=== PATIENT | male | born 1970 | race Caucasian/White ===

== ENCOUNTER 2018-10-03 20:46 | Inpatient (IN) | payer BC, OTHER ==
[~2018-10-03] VITALS: Ht 199.4 cm; Wt 105.3 kg
[2018-10-03] MEDS ORDERED: DIVA500T4 PO (21:06)
[2018-10-03] MEDS ORDERED: PROPOFOL 10 MG/ML, 20ML ONE (21:21)
[2018-10-03] MEDS ORDERED: SODIUM CHLORIDE FLUSH 10ML SYR IVF ONE ×2 (21:30→22:30)
[2018-10-03] MEDS ORDERED: PROPOFOL 10 MG/ML, 20ML IVPush ONE (21:30)
[2018-10-03 21:39] LABS: BASOPHILS # (AUTO) 0.02 x10^3/uL (0-0.1); BASOPHILS % (AUTO) 0 % (0-1); EOSINOPHILS # (AUTO) 0.12 x10^3/uL (0-0.4); EOSINOPHILS % (AUTO) 2 % (1-7); LYMPHOCYTES # (AUTO) 3.29 x10^3/uL (1-3.4); LYMPHOCYTES % (AUTO) 47 % (22-44); MD NO; MEAN CORPUSCULAR HEMOGLOBIN 31.4 pg (27.5-34.5); MEAN CORPUSCULAR VOLUME 92.3 fL (81-97); MEAN PLATELET VOLUME 8.8 fL (7.4-10.4); MONOCYTES # (AUTO) 0.75 x10^3/uL (0.2-0.8); MONOCYTES % (AUTO) 11 % (2-9); NEUTROPHILS # (AUTO) 2.83 x10^3/uL (1.8-6.8); NEUTROPHILS % (AUTO) 40 % (42-75); PLATELET COUNT 199 x10^3/uL (130-400); RED BLOOD COUNT 4.86 x10^6/uL (4.38-5.82); RED CELL DISTRIBUTION WIDTH 14.3 % (9.4-14.8)
[2018-10-03 21:48] LABS: ALBUMIN 3.2 g/dL (3.4-5.0); ANION GAP 6 mmol/L (5-15); CALCIUM 8.7 mg/dL (8.5-10.1); CHLORIDE 110 mmol/L (98-107)
[2018-10-03 22:02] LABS: ALANINE AMINOTRANSFERASE 37 U/L (12-78); ALKALINE PHOSPHATASE 92 U/L (45-117); BILIRUBIN,TOTAL 0.3 mg/dL (0.2-1.0); CREATININE 1.04 mg/dL (0.7-1.3); T4 (THYROXINE) 8.4 mcg/dL (4.5-12.1); TOTAL PROTEIN 6.7 g/dL (6.4-8.2)
[2018-10-03] MEDS ORDERED: DILTIAZEM 125 MG in DEXTROSE 5% 100 ML IV SCH (22:06)
[2018-10-03 22:27] LABS: INTERNATIONAL NORMALIZED RATIO 0.94 (0.93-1.1)
[2018-10-03] MEDS ORDERED: PLEASE ENTER ALLERGIES MC SCH (22:30)
[2018-10-03] MEDS ORDERED: DILTIAZEM 5 MG/ML, 5ML IV ONE (22:30)
[2018-10-03] MEDS ORDERED: SODIUM CHLORIDE 0.9% 1,000ML IVBOLUS ONE (22:30)
[2018-10-03] MEDS ORDERED: DILTIAZEM 5 MG/ML, 5ML ONE (22:33)
[2018-10-03] MEDS ORDERED: BISACODYL 10 MG SUPP PR PRN (23:30)
[2018-10-03] MEDS ORDERED: DILTIAZEM 125 MG in SODIUM CHLORIDE 0.9% 100 ML IV PRN (23:30)
[2018-10-03] MEDS ORDERED: morphine SULFATE 10 MG/ML, 1ML IVPush PRN (23:30)
[2018-10-03] MEDS ORDERED: LABETALOL 5MG/ML, 20ML IVPush PRN (23:30)
[2018-10-03] MEDS ORDERED: DOCUSATE 100 MG CAPSULE PO PRN (23:30)
[2018-10-03] MEDS ORDERED: ONDANSETRON ODT 4 MG PO PRN (23:30)
[2018-10-03] MEDS ORDERED: ONDANSETRON 2MG/ML, 2ML IVPush PRN (23:30)
[2018-10-03] MEDS ORDERED: DIVALPROEX 500 MG TAB.ER.24H PO SCH (23:30)
[2018-10-03] MEDS ORDERED: POLYETHYLENE GLYCOL 17 GM PACKET PO PRN (23:30)
[2018-10-03] MEDS ORDERED: ACETAMINOPHEN 325 MG TABLET PO PRN (23:30)
[2018-10-03] MEDS ORDERED: PROMETHAZINE 25 MG/ML, 1ML IM PRN (23:30)
[2018-10-03] MEDS ORDERED: OXYcodone IR 5MG TABLET PO PRN (23:30)
[2018-10-03 23:56] LABS: HEMOGLOBIN A1C 6.2 % (4.2-6.3)
[2018-10-04] MEDS ORDERED: DILTIAZEM 125 MG in SODIUM CHLORIDE 0.9% 100 ML IV PRN
[2018-10-04 00:04] LABS: FREE T4 (FREE THYROXINE) 0.98 ng/dL (0.76-1.46)
[2018-10-04] MEDS: HEPARIN 5,000 UNITS/ML, 1ML SQ SCH ×2 (00:07→08:22)
[2018-10-04] MEDS: SODIUM CHLORIDE 0.9% 1,000 ML IV SCH ×2 (00:08→10:14)
[2018-10-04] MEDS: ASPIRIN 325 MG TABLET EC PO SCH ×2 (00:08→09:01)
[2018-10-04 02:29] VITALS: BP 108/75
[2018-10-04 02:39] VITALS: BP 109/74
[2018-10-04 05:27] LABS: BASOPHILS # (AUTO) 0.01 x10^3/uL (0-0.1); BASOPHILS % (AUTO) 0 % (0-1); EOSINOPHILS # (AUTO) 0.08 x10^3/uL (0-0.4); EOSINOPHILS % (AUTO) 1 % (1-7); LYMPHOCYTES # (AUTO) 2.68 x10^3/uL (1-3.4); LYMPHOCYTES % (AUTO) 42 % (22-44); MD NO; MEAN CORPUSCULAR HEMOGLOBIN 31.5 pg (27.5-34.5); MEAN CORPUSCULAR HGB CONC 33.7 g/dL (33.2-36.2); MEAN CORPUSCULAR VOLUME 93.2 fL (81-97); MEAN PLATELET VOLUME 8.9 fL (7.4-10.4); MONOCYTES # (AUTO) 0.65 x10^3/uL (0.2-0.8); MONOCYTES % (AUTO) 10 % (2-9); NEUTROPHILS # (AUTO) 2.99 x10^3/uL (1.8-6.8); NEUTROPHILS % (AUTO) 47 % (42-75); PLATELET COUNT 179 x10^3/uL (130-400); RED BLOOD COUNT 4.75 x10^6/uL (4.38-5.82); RED CELL DISTRIBUTION WIDTH 14.4 % (9.4-14.8)
[2018-10-04 05:36] LABS: ALBUMIN 2.9 g/dL (3.4-5.0); ANION GAP 7 mmol/L (5-15); CALCIUM 8.3 mg/dL (8.5-10.1); CHLORIDE 111 mmol/L (98-107)
[2018-10-04 05:41] LABS: ALANINE AMINOTRANSFERASE 33 U/L (12-78); ALKALINE PHOSPHATASE 62 U/L (45-117); BILIRUBIN,TOTAL 0.3 mg/dL (0.2-1.0); CHOLESTEROL, TOTAL 149 mg/dL (140-239); CREATININE 0.88 mg/dL (0.7-1.3); HDL CHOL % 25 % (26-37); HDL CHOLESTEROL (DIRECT) 37 mg/dL (40-60); LDL CHOLESTEROL,CALCULATED 95 mg/dL (54-169); LDL/HDL RATIO 2.6 (0.5-3.0); TRIGLYCERIDES 85 mg/dL (50-200); VLDL CHOLESTEROL 17 mg/dL (0-25)
[2018-10-04] MEDS ORDERED: METOPROLOL TARTRATE 25 MG TABLET PO SCH (06:00)
[2018-10-04] MEDS ORDERED: ASPIRIN 325 MG TABLET EC PO SCH (06:00)
[2018-10-04 07:47] VITALS: BP 124/84
[2018-10-04] MEDS ORDERED: DIVALPROEX 500 MG TAB.ER.24H PO SCH ×2 (09:00)
[2018-10-04] MEDS ORDERED: APIXABAN 5 MG TABLET PO SCH (11:30)
[2018-10-04] MEDS ORDERED: OMNIPAQUE 350 MG/ML, 100ML BOTTLE ONE (12:06)
[2018-10-04] MEDS ORDERED: METO25TA35 PO (12:55)
[2018-10-04] MEDS ORDERED: APIX5TAB PO (12:55)
== END 2018-10-04 16:00 | disposition home or self-care (01) | DRG 309 ==
LOC: ED 22:32 → EDIP 23:17 → 5SO 23:30
PROVIDERS: ADMIT Internal Medicine; ATTEND Family Medicine
PROC: 5A2204Z Restoration of Cardiac Rhythm, Single (ICD-10-PCS; principal; 2018-10-03)
DX: I48.91 Unspecified atrial fibrillation (principal); E44.0 Moderate protein-calorie malnutrition; F31.9 Bipolar disorder, unspecified; E55.9 Vitamin D deficiency, unspecified; G40.909 Epilepsy, unspecified, not intractable, without status epilepticus; Z68.26 Body mass index [BMI] 26.0-26.9, adult; Z82.49 Family history of ischemic heart disease and other diseases of the circulatory system
CPT/HCPCS: 36415; 71045; 71275; 80053; 80061; 80307; 82306; 82607; 83036; 83735; 84436; 84439; 84443; 85025; 85610; 85730; 92960; 93005; 93306; 93970; 96365; 96375; 99152; 99291; G0378; J1644; Q9967; J7030

== ENCOUNTER 2019-05-21 15:23 | Outpatient (CLI) | payer OTHER ==
[~2019-05-21 15:23] MED LIST: APIX5TAB PO; DIVA500T4 PO; METO25TA35 PO
== END 2019-05-21 23:59 | disposition home or self-care (01) ==
LOC: STAR 15:23
PROVIDERS: ATTEND Podiatrist Foot & Ankle Surgery
DX: Z02.9 Encounter for administrative examinations, unspecified (principal)

== ENCOUNTER 2019-05-28 13:18 | Day surgery (SDC) | payer OTHER ==
[~2019-05-28] VITALS: Ht 198.1 cm; Wt 102.0 kg
[~2019-05-28 13:18] MED LIST changes: +PROPOFOL 10 MG/ML, 50ML ONE
[2019-05-28] MEDS ORDERED: BUPIVACAINE/PF-EPI 0.5% 1:200K ONE (13:51)
[2019-05-28 14:06] VITALS: BP 112/68
[2019-05-28] MEDS ORDERED: LACTATED RINGERS 1,000 ML IV SCH (14:25)
[2019-05-28] MEDS ORDERED: MIDAZOLAM 1 MG/ML, 2ML ONE (14:46)
[2019-05-28] MEDS ORDERED: FENTANYL PF 100 MCG/2ML ONE ×2 (14:46→16:32)
[2019-05-28] MEDS ORDERED: ONDANSETRON 2MG/ML, 2ML ONE (16:14)
[2019-05-28] MEDS ORDERED: PROPOFOL 10 MG/ML, 20ML ONE (16:14)
[2019-05-28] MEDS ORDERED: DEXAMETHASONE 4 MG/ML, 1ML ONE (16:14)
[2019-05-28] MEDS ORDERED: CEFAZOLIN 1,000 MG ONE (16:14)
[2019-05-28] MEDS ORDERED: OXYcodone 5 MG/5 ML ORAL.SOL UDC ONE (16:32)
[2019-05-28] MEDS: FENTANYL PF 100 MCG/2ML IV PRN ×3 (16:40→17:05)
[2019-05-28] MEDS ORDERED: HYDROmorphone 2 MG/ML, 1ML IVPush PRN (17:00)
[2019-05-28] MEDS ORDERED: MEPERIDINE/PF 25MG/0.5ML IVPush PRN (17:00)
[2019-05-28] MEDS ORDERED: OXYcodone 5 MG/5 ML ORAL.SOL UDC PO PRN (17:00)
[2019-05-28] MEDS ORDERED: ACETAMINOPHEN 325 MG TABLET PO PRN (17:00)
[2019-05-28] MEDS ORDERED: PROMETHAZINE 25 MG/ML, 1ML IV PRN (17:00)
[2019-05-28] MEDS ORDERED: ONDANSETRON 2MG/ML, 2ML IV PRN (17:00)
== END 2019-05-28 18:20 | disposition home or self-care (01) ==
LOC: OUT 13:18
PROVIDERS: ATTEND Podiatrist Foot & Ankle Surgery
DX: T84.84XA Pain due to internal orthopedic prosthetic devices, implants and grafts, initial encounter (principal); M21.42 Flat foot [pes planus] (acquired), left foot; M21.6X2 Other acquired deformities of left foot; Z79.899 Other long term (current) drug therapy; Z88.8 Allergy status to other drugs, medicaments and biological substances; Y83.9 Surgical procedure, unspecified as the cause of abnormal reaction of the patient, or of later complication, without mention of misadventure at the time of the procedure
CPT/HCPCS: 27606; 28300; 64445; 64447; C1713; C1776; J0690; J1100; J2250; J2405; J2704; J3010; J7120